=== PATIENT | female | born 1970 | race Caucasian/White ===

== ENCOUNTER 2017-05-26 14:37 | Emergency (ER) | payer OTHER ==
[2017-05-26 14:42] VITALS: BMI 26.9
[2017-05-26 14:47] VITALS: O2SAT 100
--- NOTE | 2017-05-26 14:48 | ED PDOC ---
Arrival/HPI - General Chief Complaint: Dizziness/Lightheaded Time Seen by Provider: 05/26/17 14:47 Historian: Patient - History of Present Illness Narrative History of Present Illness (Text): 05/26/17 14:48 46 year old male, pmh including htn/hyperlipidemia, nkda, complaining of vertigo for the past 3 days. Pt. stated that it was sudden onset, room spinning sensation, feeling like she will fall, feels nauseous when moving head too fast, no slurred speech, stated that she took her sister's atenolol and though this is due to the BP but the BP max at 140s/90, no chest pain or shortness of breath, no palpitation, no rash, no night sweat, no slurred speech or numbness/tingling, no other medical or psychological complaints. Past Medical History - Provider Review Nursing Documentation Reviewed: Yes - Infectious Disease Hx of Infectious Diseases: None - Cardiac Hx Cardiac Disorders: Yes Hx Hypertension: Yes - Pulmonary Hx Respiratory Disorders: No - Neurological Hx Neurological Disorder: No - HEENT Hx HEENT Disorder: Yes Other/Comment: glasses - Renal Hx Renal Disorder: No - Endocrine/Metabolic Hx Endocrine Disorders: No - Hematological/Oncological Hx Blood Disorders: No - Integumentary Hx Dermatological Disorder: No - Musculoskeletal/Rheumatological Hx Musculoskeletal Disorders: No - Gastrointestinal Hx Gastrointestinal Disorders: No - Genitourinary/Gynecological Hx Genitourinary Disorders: No - Psychiatric Hx Psychophysiologic Disorder: No Hx Substance Use: No - Anesthesia Hx Anesthesia: No Family/Social History - Physician Review Nursing Documentation Reviewed: Yes Family/Social History: Unknown Family HX Smoking Status: Never Smoked Hx Alcohol Use: No Hx Substance Use: No Allergies/Home Meds Allergies/Adverse Reactions: Allergies No Known Allergies Allergy (Verified 05/26/17 14:41) Home Medications: Home Meds Medication Instructions Recorded Confirmed Enalapril Maleate [Vasotec] 20 mg PO DAILY 05/26/17 05/26/17 Hydrochlorothiazide [Microzide] 1 tab PO DAILY 05/26/17 05/26/17 Simvastatin [Zocor] 20 mg PO DAILY 05/26/17 05/26/17 Review of Systems - Review of Systems Constitutional: absent: Fatigue, Fevers Eyes: absent: Vision Changes ENT: absent: Hearing Changes Respiratory: absent: SOB, Cough Cardiovascular: absent: Chest Pain Gastrointestinal: absent: Abdominal Pain, Nausea, Vomiting Skin: absent: Rash, Pruritis Neurological: Dizziness. absent: Headache, Focal Weakness, Gait Changes, Speech Changes, Facial Droop Physical Exam Vital Signs Reviewed: Yes Vital Signs Temp Pulse Resp BP Pulse Ox 05/26/17 17:45 97.3 F L 76 20 137/93 H 100 05/26/17 14:47 97.5 F L 69 17 144/94 H 100 Temperature: Afebrile Blood Pressure: Hypertensive Pulse: Regular Respiratory Rate: Normal Appearance: Positive for: Well-Appearing, Non-Toxic, Comfortable Pain Distress: None Mental Status: Positive for: Alert and Oriented X 3 - Systems Exam Head: Present: Atraumatic, Normocephalic Pupils: Present: PERRL Extroacular Muscles: Present: EOMI Conjunctiva: Present: Normal Mouth: Present: Moist Mucous Membranes Neck: Present: Normal Range of Motion Respiratory/Chest: Present: Clear to Auscultation, Good Air Exchange. No: Respiratory Distress, Accessory Muscle Use Cardiovascular: Present: Regular Rate and Rhythm, Normal S1, S2. No: Murmurs Abdomen: Present: Normal Bowel Sounds. No: Tenderness, Distention, Peritoneal Signs Back: Present: Normal Inspection Upper Extremity: Present: Normal Inspection. No: Cyanosis, Edema Lower Extremity: Present: Normal Inspection. No: Edema Neurological: Present: GCS=15, CN II-XII Intact, Speech Normal, Motor Func Grossly Intact, Memory Normal, Other (+arin shelton pike test. no drift, no slurred speech, +horizontal nystagmus with sudden head movement. ) Skin: Present: Warm, Dry, Normal Color. No: Rashes Psychiatric: Present: Alert, Oriented x 3, Normal Insight, Normal Concentration Medical Decision Making ED Course and Treatment: 05/26/17 15:16 -labs/ua -CT head -EKG -Pt. feels moderately better with the madeline maneuver -NIHSS is zero -IVF and meclizine 50mg po 05/26/17 17:20 -EKG: NSR @ 71 BPM, no ST elevation or depression, no T wave inversion. -CT Head: No acute findings -Labs are non-significant -Urinalysis show no UTI. 05/26/17 17:55 -Pt. feels better, no headache or dizziness, able to walk and stand with normal gait and posture, walk with me around the ER with normal gait and posture, asymptomatic, no focal neurological deficits. -Discharge home with meclizine, stay hydrated, bed rest, follow up with your own pmd and neurologist/ENT within 2 days, return to the ER for any new or worsening signs or symptoms. - Lab Interpretations Lab Results: 05/26/17 15:47 05/26/17 15:47 Lab Results 05/26/17 15:47: Beta HCG, Quant < 2.39 05/26/17 15:47: Sodium 142, Potassium 4.5, Chloride 103, Carbon Dioxide 26, Anion Gap 17, BUN 9, Creatinine 0.6 L, Est GFR ( Amer) > 60, Est GFR (Non -Af Amer) > 60, Random Glucose 85, Calcium 9.9, Magnesium 2.1, Total Bilirubin 0.8, AST 35, ALT 38, Alkaline Phosphatase 55, Total Protein 9.0 H, Albumin 4.7, Globulin 4.3, Albumin/Globulin Ratio 1.1 05/26/17 15:47: WBC 10.8, RBC 5.87, Hgb 14.3, Hct 43.5, MCV 74.1 L, MCH 24.4 L, MCHC 32.9, RDW 15.9 H, Plt Count 354, MPV 10.5, Gran % 60.2, Lymph % (Auto) 31.5 , [place] % (Auto) 7.3 H, Eos % (Auto) 0.8 L, Baso % (Auto) 0.2, Gran # 6.51 H, Lymph # 3.4, [place] # 0.8 H, Eos # 0.1, Baso # 0.02 05/26/17 14:50: Urine Color Yellow, Urine Appearance Clear, Urine pH 6.0, Ur Specific [place] <= 1.005, Urine Protein Negative, Urine Glucose (UA) Negative, Urine Ketones Negative, Urine Blood Negative, Urine Nitrate Negative, Urine Bilirubin Negative, Urine Urobilinogen 0.2, Ur Leukocyte Esterase Negative I have reviewed the lab results: Yes Interpretation: No clinic. lab abnormalty - RAD Interpretation Radiology Orders: 05/26/17 15:10 HEAD W/O CONTRAST [CT] Stat PROCEDURE: CT HEAD WITHOUT CONTRAST. HISTORY: dizziness x 3 days COMPARISON: None available. TECHNIQUE: Axial computed tomography images were obtained through the head/brain without intravenous contrast. Radiation dose: Total exam DLP = 726 mGy-cm. This CT exam was performed using one or more of the following dose reduction techniques: Automated exposure control, adjustment of the mA and/or kV according to patient size, and/or use of iterative reconstruction technique. FINDINGS: HEMORRHAGE: No intracranial hemorrhage. BRAIN: No mass effect or edema. No atrophy or chronic microvascular ischemic changes. VENTRICLES: Unremarkable. No hydrocephalus. CALVARIUM: Unremarkable. PARANASAL SINUSES: There is nearly complete opacification of the right maxillary sinus MASTOID AIR CELLS: Unremarkable as visualized. No inflammatory changes. OTHER FINDINGS: None. 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 Interpreted by ED Physician: Yes Type: 12 lead EKG - Medication Orders Current Medication Orders: Discontinued Medications Sodium Chloride (Sodium Chloride 0.9%) 1,000 mls @ 999 mls/hr IV .Q1H1M STA Stop: 05/26/17 16:10 Last Admin: 05/26/17 15:58 Dose: 999 mls/hr eMAR Start Stop Document 05/26/17 15:58 HI (Rec: 05/26/17 15:58 HI [id number]) Intravenous Solution Start Date 05/26/17 Start Time 15:58 Meclizine HCl (Antivert) 50 mg PO STAT STA Stop: 05/26/17 15:11 Last Admin: 05/26/17 15:57 Dose: 50 mg - PA / CAMPUS ADMINISTRATOR / Resident Statement MD/DO has reviewed & agrees with the documentation as recorded. Disposition/Present on Arrival - Present on Arrival Any Indicators Present on Arrival: No History of DVT/PE: No History of Uncontrolled Diabetes: No Urinary Catheter: No History of Decub. Ulcer: No History Surgical Site Infection Following: None - Disposition Have Diagnosis and Disposition been Completed?: Yes Diagnosis: Vertigo Disposition: HOME/ ROUTINE Disposition Time: 17:27 Patient Plan: Discharge Patient Problems: Current Active Problems Problem Status Onset Vertigo Acute Condition: IMPROVED Additional Instructions: Discharge home with meclizine, stay hydrated, bed rest, follow up with your own pmd and neurologist/ENT within 2 days, return to the ER for any new or worsening signs or symptoms. Prescriptions: Meclizine HCl 25 mg PO QID PRN #40 tablet PRN Reason: Other Referrals: Rosibel Rendon, [Primary Care Provider] - Follow up with primary Leonel Kang MD [Staff Provider] - Follow up with primary Sheldon Landrum DO [Staff Provider] - Follow up with primary Forms: WORK NOTE
[2017-05-26] MEDS ORDERED: Sodium Chloride 0.9% 1,000 ML IV STA (15:10)
[2017-05-26 16:00] LABS: BASO # 0.02 K/mm3 (0.0-2.0); BASO % 0.2 % (0.0-3.0); EOS # 0.1 (0.0-0.7); EOS % 0.8 % (1.5-5.0); GRAN # 6.51 (1.4-6.5); GRAN % 60.2 % (50.0-68.0); HEMATOCRIT 43.5 % (36.0-48.0); LYMPH # 3.4 (1.2-3.4); LYMPH % 31.5 % (22.0-35.0); MEAN CELL VOLUME 74.1 fl (80.0-105.0); MEAN CORPUSCULAR HEMOGLOBIN 24.4 pg (25.0-35.0); MEAN CORPUSCULAR HGB CONC 32.9 g/dl (31.0-37.0); MEAN PLATELET VOLUME 10.5 fl (7.0-11.0); MONO # 0.8 (0.1-0.6); MONO % 7.3 % (1.0-6.0); RED CELL DISTRIBUTION WIDTH 15.9 % (11.5-14.5); WHITE BLOOD COUNT 10.8 10^3/ul (4.5-11.0)
[2017-05-26 16:15] LABS: BILIRUBIN,TOTAL 0.8 mg/dL (0.2-1.3); CALCIUM 9.9 mg/dL (8.4-10.5); GFR AFRICAN-AMERICAN > 60; GLUCOSE,RANDOM 85 mg/dL (70-110)
[2017-05-26 16:21] LABS: ALB/GLOB RATIO 1.1 (1.1-1.8); ALKALINE PHOSPHATASE 55 U/L (38-126); ALT/SGPT 38 U/L (7-56); AST/SGOT 35 U/L (14-36); BLOOD UREA NITROGEN 9 mg/dL (7-21); CARBON DIOXIDE 26 mmol/L (21-33); CHLORIDE 103 mmol/L (98-107); MAGNESIUM 2.1 mg/dL (1.7-2.2); POTASSIUM 4.5 mmol/L (3.6-5.0); SODIUM 142 mmol/L (132-148)
[2017-05-26 16:58] LABS: URINE BILIRUBIN NEGATIVE (NEGATIVE); URINE BLOOD NEGATIVE (NEGATIVE); URINE GLUCOSE (UA) NEGATIVE (NEGATIVE); URINE KETONE NEGATIVE (NEGATIVE); URINE LEUKOCYTE ESTERASE NEGATIVE Leu/uL (NEGATIVE); URINE PROTEIN NEGATIVE mg/dL (<30 mg/dL); URINE UROBILINOGEN 0.2 E.U./dL (<1 E.U./dL)
[2017-05-26 16:59] LABS: URINE APPEARANCE CLEAR (CLEAR); URINE COLOR YELLOW (YELLOW)
--- NOTE | 2017-05-26 17:05 | CT ---
PROCEDURE: CT HEAD WITHOUT CONTRAST. HISTORY: dizziness x 3 days COMPARISON: None available. TECHNIQUE: Axial computed tomography images were obtained through the head/brain without intravenous contrast. Radiation dose: Total exam DLP = 726 mGy-cm. This CT exam was performed using one or more of the following dose reduction techniques: Automated exposure control, adjustment of the mA and/or kV according to patient size, and/or use of iterative reconstruction technique. FINDINGS: HEMORRHAGE: No intracranial hemorrhage. BRAIN: No mass effect or edema. No atrophy or chronic microvascular ischemic changes. VENTRICLES: Unremarkable. No hydrocephalus. CALVARIUM: Unremarkable. PARANASAL SINUSES: There is nearly complete opacification of the right maxillary sinus MASTOID AIR CELLS: Unremarkable as visualized. No inflammatory changes. OTHER FINDINGS: None. IMPRESSION: No acute findings
[2017-05-26 17:46] VITALS: BP 137/93; PULSE 76; RESP 20; TEMP 97.3
--- NOTE | 2017-05-27 10:10 | CARD ---
APPROVED REPORT EKG Measurement Heart [id number] IN [id number] [id number] <Conclusion> Normal sinus rhythm Small q waves 3,F, possible IMI, age unknown LVH by voltage
== END 2017-05-26 17:59 | disposition home or self-care (01) ==
LOC: ED 14:37 → MERGE 14:37 → ED 17:59
DX: R42 Dizziness and giddiness (principal); I10 Essential (primary) hypertension
CPT/HCPCS: 70450; 80053; 81003; 83735; 84702; 85025; 93005; 99285; J7040